=== PATIENT | female | born 1975 | race Caucasian/White ===

== ENCOUNTER 2017-11-18 13:30 | Inpatient (IN) | payer OTHER ==
[~2017-11-18] VITALS: Ht 147.3 cm; Wt 72.1 kg
== END 2017-11-24 13:02 | DRG 743 ==
LOC: OB/GYN 13:30
PROVIDERS: Obstetrics & Gynecology
PROC: 30233N1 Transfusion of Nonautologous Red Blood Cells into Peripheral Vein, Percutaneous Approach (ICD-10-PCS; 2017-11-18)
PROC: 0UQ20ZZ Repair Bilateral Ovaries, Open Approach (ICD-10-PCS; 2017-11-21)
PROC: 0UT94ZZ Resection of Uterus, Percutaneous Endoscopic Approach (ICD-10-PCS; principal; 2017-11-21 11:00)
DX: D25.1 Intramural leiomyoma of uterus (principal); D51.0 Vitamin B12 deficiency anemia due to intrinsic factor deficiency; I10 Essential (primary) hypertension; N72 Inflammatory disease of cervix uteri